=== PATIENT | male | born 1985 | race Caucasian/White ===

== ENCOUNTER 2020-09-05 15:49 | Emergency (ER) | payer MEDICAID ==
[~2020-09-05] VITALS: Ht 167.6 cm; Wt 68.0 kg
--- NOTE | 2020-09-05 16:02 | NUR ---
TO ER BED 1 AWAITING MD PETERSON
[2020-09-05] MEDS ORDERED: IBUP-1955 PO (17:56)
[2020-09-05] MEDS ORDERED: IBUPROFEN 600 MG TABLET PO ONE (18:00)
[2020-09-05] MEDS ORDERED: IBUPROFEN 600 MG TABLET ONE (18:02)
[2020-09-05 18:25] VITALS: BP 135/81
--- NOTE | 2020-09-05 18:26 | NUR ---
Patient discharged to home in stable condition. Written and verbal after care instructions given. Patient verbalizes understanding of instruction.
== END 2020-09-05 18:25 | disposition home or self-care (01) ==
LOC: ER 15:53
DX: M54.2 Cervicalgia (principal); M25.512 Pain in left shoulder; R07.89 Other chest pain; F17.200 Nicotine dependence, unspecified, uncomplicated; Z79.899 Other long term (current) drug therapy
CPT/HCPCS: 71100-TC; 72125-TC; 73030-TC